=== PATIENT | female | born 1980 | race Caucasian/White ===

== ENCOUNTER 2020-04-13 09:29 | Emergency (ER) | payer SELFPAY ==
--- NOTE | ~2020-04-13 | XR_ITS ---
EXAMINATION: XR wrist LT min 3V DATE: 04/13/2020 10:42 INDICATION: Left wrist pain post fall TECHNIQUE: Posteroanterior, ulnar deviation, oblique, and lateral views of the left wrist were obtain ed. COMPARISON: none FINDINGS: Tiny minimally displaced chip/avulsion fracture at the distal aspect of the dorsal margin of the triq uetrum. No other fractures identified. Alignment is otherwise normal. Joint spaces are normal. Soft t issue swelling at the dorsum of the carpus. IMPRESSION: 1. Tiny minimally displaced dorsal triquetral chip/avulsion fracture. Reviewed, dictated and finalized at location A.
--- NOTE | ~2020-04-13 | XR_ITS ---
EXAMINATION: XR ankle LT min 3V DATE: 04/13/2020 10:42 INDICATION: Lateral left ankle pain post fall TECHNIQUE: Anteroposterior, oblique, mortise, and lateral views of the left ankle were obtained. COMPARISON: None. FINDINGS: Alignment is normal. No fracture. Joint spaces are well maintained. Large plantar calcaneal spur and small Achilles calcaneal spur. Small ankle joint effusion is present. Diffuse soft tissue swelling a bout the left ankle. IMPRESSION: 1. No acute osseous abnormality. Reviewed, dictated and finalized at location A.
[2020-04-13 09:34] VITALS: BP 145/83; PULSE 84; RESP 18; TEMP 36.3; O2SAT 97
--- NOTE | 2020-04-13 10:36 | ED.LOWEXIN ---
HPI - Extremity Injury (Lower) General Chief Complaint: Extremity Injury, Lower <Milla Monet PA-C - Last Filed: 04/13/20 12:54> Stated Complaint: ANKLE PAIN <Milla Monet PA-C - Last Filed: 04/13/20 12:54> Time Seen by Provider: 04/13/20 10:10 <Milla Monet PA-C - Last Filed: 04/13/20 12:54> Source: patient <LM Torres Last Filed: 04/13/20 12:54> Mode of arrival: ambulatory <Milla Monet PA-C - Last Filed: 04/13/20 12:54> Limitations: no limitations <Milla Monet PA-C - Last Filed: 04/13/20 12:54> History of Present Illness HPI Narrative: This is a 40 year old female that presents to the ER for left ankle injury 2 weeks ago. Reports she was mowing her lawn and twisted her left ankle and fell. Reports since she has had left lateral ankle pain and swelling. Also reports left wrist pain. She has not been seen yet for these injuries. Denies hitting her head, other injuries, decreased range of motion or numbness. <Milla Monet PA-C - Last Filed: 04/13/20 12:54> Related Data Allergies/Adverse Reactions: Allergies Allergy/AdvReac Type Severity Reaction Status Date / Time No Known Allergies Allergy Unknown Unverified 04/13/20 09:39 <Milla Monet PA-C - Last Filed: 04/13/20 12:54> Review of Systems Review of Systems: Narrative: CONSTITUTIONAL: Denies fever MUSCULOSKELETAL: Reports joint pain, and myalgia. NEUROLOGIC: Denies numbness <Milla Monet PA-C - Last Filed: 04/13/20 12:54> All systems reviewed & are unremarkable except as noted in HPI and below <Milla Monet PA-C - Last Filed: 04/13/20 12:54> [facility] Surgical History Surgical History: Surgical History (Updated 04/13/20 @ 10:39 by Milla Monet PA-C) History of tonsillectomy History of tubal ligation <Milla Monet PA-C - Last Filed: 04/13/20 12:54> Social History Social History: Social History (Updated 04/13/20 @ 10:39 by Milla Monet PA-C) Smoking status: Current every day smoker Substance use: current Substance use type: marijuana Gender identity (if verbalized by the patient): Female <Milla Monet PA-C - Last Filed: 04/13/20 12:54> Exam Narrative: Exam Narrative: GENERAL: Well-appearing, well-nourished, and in no acute distress. HEAD: Normocephalic, atraumatic. EYES: EOMI. CHEST: Clear to auscultation. No respiratory distress. No wheezes rales or rhonchi HEART: Regular rate and rhythm. No murmur heard. Normal peripheral pulses. EXTREMITIES: Normal range of motion. Moderate swelling about the left ankle, tender palpation over the lateral malleoli. Normal DP pulses. Normal sensation. Left wrist tender palpation over the distal ulna. Normal radial pulses. Normal sensation SKIN: Warm, dry, no rash. NEURO: No focal deficits. Alert and oriented x3. PSYCH: Normal mood and affect <Milla Monet PA-C - Last Filed: 04/13/20 12:54> Course Vital Signs Vital signs: Vital Signs Temperature 97.3 F L 04/13/20 09:34 Pulse Rate 84 04/13/20 09:34 Respiratory Rate 18 04/13/20 09:34 Blood Pressure 145/83 H 04/13/20 09:34 Pulse Oximetry 97 04/13/20 09:34 Temperature 97.3 F L 04/13/20 09:34 Pulse Rate 78 04/13/20 12:58 Respiratory Rate 18 04/13/20 12:58 Blood Pressure 122/78 04/13/20 12:58 Pulse Oximetry 99 04/13/20 12:58 <Milla Monet PA-C - Last Filed: 04/13/20 12:54> Vital Signs Temperature 97.3 F L 04/13/20 09:34 Pulse Rate 84 04/13/20 09:34 Respiratory Rate 18 04/13/20 09:34 Blood Pressure 145/83 H 04/13/20 09:34 Pulse Oximetry 97 06/29/20 09:34 Temperature 97.3 F L 04/13/20 09:34 Pulse Rate 78 04/13/20 12:58 Respiratory Rate 18 04/13/20 12:58 Blood Pressure 122/78 04/13/20 12:58 Pulse Oximetry 99 04/13/20 12:58 <Claudette Corea MD - Last Filed: 04/13/20 17:47> Procedures Orthopedic Splinting/Casting Injury #1: Splinting/Amilcar
[2020-04-13 11:09] VITALS: BP 128/76; PULSE 71; RESP 20; O2SAT 99
[2020-04-13 12:58] VITALS: BP 122/78; PULSE 78; RESP 18; O2SAT 99
== END 2020-04-13 13:07 | disposition home or self-care (01) ==
PROVIDERS: Emergency Provider General Practice
DX: S62.112A Displaced fracture of triquetrum [cuneiform] bone, left wrist, initial encounter for closed fracture (principal); S93.402A Sprain of unspecified ligament of left ankle, initial encounter; F17.210 Nicotine dependence, cigarettes, uncomplicated; W01.0XXA Fall on same level from slipping, tripping and stumbling without subsequent striking against object, initial encounter
CPT/HCPCS: 29125; 73110; 73610; 99284

== ENCOUNTER 2020-04-27 08:28 | Emergency (ER) | payer SELFPAY ==
--- NOTE | ~2020-04-27 | XR_ITS ---
XR lumbar spine 2-3V 04/27/2020 09:45 Indication: Low back pain Procedure: 3 views lumbar spine Comparison: No prior studies for comparison. Findings: There is disc narrowing at L5-S1. There is grade 1 spondylolisthesis at 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 Sacral foramen are symmetric. There is an IUD in the pelvis. No acute fracture or trau matic malalignment. Impression: 1: Mild lumbar spondylosis with grade 1 spondylolisthesis at 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 Reviewed, dictated and finalized at location B. Impression: 1: Mild lumbar spondylosis with grade 1 spondylolisthesis at 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
[2020-04-27 08:36] VITALS: BP 140/95; PULSE 80; RESP 18; TEMP 36.8; O2SAT 100
[2020-04-27 09:00] LABS: Add Urine Microscopic? NO; Appearance Urine Clear (Clear); Bilirubin Urine Negative (Negative); Blood Urine Negative (Negative); Color Urine Yellow (Yellow); Glucose Urine UA Negative (Negative); Ketones Urine Negative (Negative); Leukocyte Esterase Ur Negative LEU/UL (Negative); Mucus Urine Few /lpf; Nitrate Urine Negative (Negative); Protein Urine Negative (Negative); Specific Grav Ur 1.026 (1.001-1.035); Squamous Epithelial Cell Urine Rare /hpf (Few); Urobilinogen Urine Negative mg/dL (<2.0); WBC Urine 0-3 /hpf
[2020-04-27] MEDS: KETOROLAC (*BKC) 60 MG/2 ML VIAL IM (10:08)
--- NOTE | 2020-04-27 11:15 | ED.BACK ---
HPI - Back Pain/Injury General Chief Complaint: Back Pain/Injury Stated Complaint: lower back pain Time Seen by Provider: 04/27/20 08:30 History of Present Illness HPI Narrative: Patient is a 40-year-old female who presents ER with low back pain. Bilateral low back beginning when she woke up this morning. No numbness or tingling or difficulty using the restroom. No known injury. Has not tried any medications for this. Worse with bending and standing. Related Data Allergies Allergy/AdvReac Type Severity Reaction Status Date / Time No Known Allergies Allergy Unknown Verified 04/27/20 08:41 Review of Systems Review of Systems: All systems reviewed & are unremarkable except as noted in HPI and below Constitutional: Constitutional: Denies chills, Denies fever(s) and Denies weakness ENT: Denies nasal congestion and Denies sore throat Cardiovascular: Cardiovascular: Denies chest pain and Denies radiating jaw, neck or arm pain Musculoskeletal: Musculoskeletal: Reports back pain and Denies muscle cramps Neurologic: Denies focal weakness and Denies numbness [facility] Past Medical History Medical History (Updated 04/27/20 @ 11:17 by Konstantin Andre MD) Healthy female adult Surgical History Surgical History (Updated 04/13/20 @ 10:39 by Milla Monet PA-C) History of tonsillectomy History of tubal ligation Social History Social History (Updated 04/13/20 @ 10:39 by Milla Monet PA-C) Smoking status: Current every day smoker Substance use: current Substance use type: marijuana Gender identity (if verbalized by the patient): Female Exam Narrative: Exam Narrative: GENERAL: Well-appearing, well-nourished, and in no acute distress. HEAD: Normocephalic, atraumatic. ENT: Mucous membranes moist. CHEST: Clear to auscultation. No respiratory distress. HEART: Regular rate and rhythm. No murmur heard. Normal peripheral pulses. EXTREMITIES: Normal range of motion. No edema. Ambulates without difficulty. Back: No midline tenderness of thoracic or lumbar spine. Mild paraspinal muscular tenderness bilaterally in the lower lumbar region without palpable spasm or visual evidence of trauma. NEURO: Alert and oriented x3. Course Course Emergency Course: Pain improved with Toradol. Unremarkable x-rays. Discharge home. Vital Signs Vital signs: Vital Signs Temperature 98.3 F 04/27/20 08:36 Pulse Rate 80 04/27/20 08:36 Respiratory Rate 18 04/27/20 08:36 Blood Pressure 140/95 H 04/27/20 08:36 Pulse Oximetry 100 04/27/20 08:36 Temperature 98.3 F 04/27/20 08:36 Pulse Rate 80 04/27/20 08:36 Respiratory Rate 18 04/27/20 08:36 Blood Pressure 140/95 H 04/27/20 08:36 Pulse Oximetry 100 04/27/20 08:36 MDM - Back Pain/Injury Lab Data Labs: Lab Results 04/27/20 Range/Units 08:50 Urine Color Yellow (Yellow) Urine Appearance Clear (Clear) Urine pH 6.0 (5.0-9.0) Ur Specific Proctor 1.026 (1.001-1.035) Urine Protein Negative (Negative) mg/dL Urine Glucose (UA) Negative (Negative) mg/dL Urine Ketones Negative (Negative) mg/dL Ur Blood (Man) Negative (Negative) Urine Nitrate Negative (Negative) Urine Bilirubin Negative (Negative) Urine Urobilinogen Negative (<2.0) mg/dL Leukocyte Esterase Rfl Negative (Negative) HARISH/UL Urine RBC 3-5 H (0-2) /hpf Urine WBC 0-3 /hpf Ur Squamous Epith Cells Rare (Few) /hpf Urine Mucus Few H /lpf UCG Bedside Result Negative Reference Range: Negative Imaging Data Radiologist's impression: ITS Impressions Lumbar Spine X-Ray 04/27/20 09:52 Impression: 1: Mild lumbar spondylosis with grade 1 spondylolisthesis at 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 Discharge Plan Discharge Clinical Impression: Strain of lumbar region Patient Disposition: Home, Self-Care Condition: Stable Instructions: Acute Low Back Pain (ED) Additional Instruc
== END 2020-04-27 12:06 | disposition home or self-care (01) ==
PROVIDERS: Emergency Provider Emergency Medicine
DX: S39.012A Strain of muscle, fascia and tendon of lower back, initial encounter (principal); M47.816 Spondylosis without myelopathy or radiculopathy, lumbar region
CPT/HCPCS: 72100; 81003; 81025; 96372; 99283; J1885

== ENCOUNTER 2022-10-29 08:50 | Emergency (ER) | payer BC, SELFPAY ==
--- NOTE | 2022-10-29 08:52 | ED.BACK ---
HPI - Back Pain/Injury General Chief Complaint: Back Pain/Injury Stated Complaint: BACK PAIN Time Seen by Provider: 10/29/22 08:53 Source: patient and RN notes reviewed History of Present Illness HPI Narrative: Patient is a 42-year-old female who presents to urgent care with complaints of right low back pain that radiates to the right flank. Patient states it is exacerbated with twisting, lifting, pushing or pulling. States that she woke up with the pain this morning. Denies any history of kidney stones or urinary tract infections. Denies any urinary frequency, urgency, dysuria or hematuria. Denies any nausea, vomiting or abdominal pain. Patient is not taking anything [id number] for her pain. Patient denies any recent injury, fall or strenuous activity. Denies any radiation of the pain. No other acute complaints. No acute distress noted. Patient aware of the plan of care. Some parts of this dictation were generated by voice recognition software and may contain typographical and/or grammatical inaccuracies. Related Data Allergies Allergy/AdvReac Type Severity Reaction Status Date / Time No Known Allergies Allergy Unknown Verified 10/29/22 09:00 Review of Systems Review of Systems: CONSTITUTIONAL: Denies fever, chills, or sweats. EYES: Denies visual changes, redness, or discharge. ENT: Denies rhinorrhea, congestion, sore throat, or otalgia. CARDIOVASCULAR: Denies chest pain, palpitations, or edema. RESPIRATORY: Denies cough or dyspnea. GASTROINTESTINAL: Denies abdominal pain, nausea, vomiting, or diarrhea. GENITOURINARY: Denies dysuria or hematuria. SKIN: Denies rash or itching. MUSCULOSKELETAL: Reports right flank pain NEUROLOGIC: Denies headache, numbness, or weakness. All other systems reviewed are negative, except as documented in HPI. [facility] Past Medical History Medical History (Updated 10/29/22 @ 09:14 by EARL Brown) Healthy female adult Lumbar spondylosis Surgical History Surgical History History of tonsillectomy History of tubal ligation Family History Family History (Updated 04/29/20 @ 09:00 by RT Marilee(R)) Other Hypertension Social History Social History (Updated 04/29/20 @ 09:00 by Zoë D. Fuentes, RT(R)) Smoking packs per day: 0.5 Smoking cigarettes per day: 10.0 Years smoked: 20 Smoking pack-years: 10.00 Smoking status: Current every day smoker Substance use: current Substance use type: marijuana Gender identity (if verbalized by the patient): Female Comments At the time of my signature, I reviewed and agree with the nursing past medical, surgical, social, and family history. There is no relevant family history pertinent to the patient complaint. Exam Narrative: GENERAL: This is a well-nourished, well-developed patient, in no apparent distress. HEAD: normocephalic, atraumatic. EYES: PERRL. Sclera clear/white. Vision is grossly intact. EARS: External ears normal NOSE: External nose normal with no obvious nasal discharge, nares without redness, no rhinorrhea. THROAT: Mucous membranes moist NECK: Neck supple CARDIOVASCULAR: Regular rate and rhythm RESPIRATORY: Clear to auscultation. Breath sounds equal bilaterally. No wheezes, rales, or rhonchi. GASTROINTESTINAL: No abdominal tenderness, no rebound tenderness, bowel sounds active. SKIN: warm, intact with no suspicious lesions or rash, good texture and turgor. NEURO: awake, alert, and oriented to person, place and time. There were no obvious focal neurologic abnormalities. EXTREMITIES: No clubbing, cyanosis, or edema. BACK: Moderate right CVA tenderness. Mild positive left SLE Course Course Level of Care: Express Care Visit Vital Signs Vital signs: Vital Signs Temperature 97.8 F 10/29/22 09:03 Pulse Rate 79 10/29/22 09:03 Respiratory Rate 16 10/29/22 09:03 Blood Pressure 152/85 H 10/29/22 09:03 Pulse Ox
[2022-10-29 09:03] VITALS: BP 152/85; PULSE 79; RESP 16; TEMP 36.6; O2SAT 100
== END 2022-10-29 09:20 | disposition home or self-care (01) ==
PROVIDERS: Emergency Provider Nurse Practitioner Family
DX: M54.50 Low back pain, unspecified (principal); F17.210 Nicotine dependence, cigarettes, uncomplicated; M47.816 Spondylosis without myelopathy or radiculopathy, lumbar region
CPT/HCPCS: 81003; 99213; G0463

== ENCOUNTER 2022-11-20 09:51 | Emergency (ER) | payer BC, SELFPAY ==
--- NOTE | ~2022-11-20 | XR_ITS ---
EXAMINATION: XR elbow RT 2V INDICATION: Right elbow pain, initial encounter TECHNIQUE: Three views of the right elbow are obtained. COMPARISON: None available FINDINGS: Nonstandard portable images are submitted for review. There is an oblique fracture of the m edial condyle of the humerus with proximal migration of the fracture fragment and ulna. No definite a dditional fracture is identified. IMPRESSION: 1. Displaced medial condylar fracture of the right humerus. Reviewed, dictated and finalized at location A. USION PARAEDUCATOR
--- NOTE | ~2022-11-20 | XR_ITS ---
EXAMINATION: XR wrist RT 2V INDICATION: Distal radius pain, initial encounter TECHNIQUE: Two views of the right wrist are obtained. COMPARISON: None available FINDINGS: There is an oblique fracture in the lateral condyle of the distal radius which extends to t he articular surface. No additional fracture is identified. There is soft tissue swelling. IMPRESSION: 1. Oblique intra-articular fracture at the lateral condyle of the right radius. Reviewed, dictated and finalized at location A. [employer]GEN POWER PLANT ENGINEER
[2022-11-20 09:52] VITALS: BP 147/93; PULSE 91; RESP 16; TEMP 37; O2SAT 100
--- NOTE | 2022-11-20 10:26 | ED.FALL ---
HPI - Fall General Chief Complaint: Fall Stated Complaint: fall Source: patient and RN notes reviewed Mode of arrival: ambulatory Limitations: no limitations History of Present Illness HPI Narrative: patient was at home they are burning some boxes and she tripped over a log in the backyard falling onto her right arm. She has severe pain to her right elbow and moderate pain to her right wrist. Movement of any kind makes it worse nothing makes it better complaint: fall Onset (ago): minute(s) (10) Fall from: standing Fall witnessed: yes, by family Place fall occurred: home Loss of consciousness: none Symptoms prior to fall: none Context: tripped/slipped Location of injury - extremities: Right: elbow and forearm Severity: severe Severity scale (1-10): 10 Quality: sharp, stabbing and throbbing Associated symptoms (after fall): denies Related Data Allergies Allergy/AdvReac Type Severity Reaction Status Date / Time No Known Allergies Allergy Unknown Verified 11/20/22 10:13 Review of Systems Review of Systems: All systems reviewed & are unremarkable except as noted in HPI and below PMFSH Past Medical History Medical History Healthy female adult Lumbar spondylosis Surgical History Surgical History History of tonsillectomy History of tubal ligation Family History Family History (Updated 04/29/20 @ 09:00 by Zoë Fuentes, RT(R)) Other Hypertension Social History Social History Years smoked: 20 Substance use: current Substance use type: marijuana Gender identity (if verbalized by the patient): Female Exam Const: General: healthy appearing, no acute distress and alert Nutritional Appearance: well nourished and obese Orientation/consciousness: patient oriented x3 Limitations: no limitations HENMT: Head: normal to inspection Ears: external ears normal Eyes: Conjunctivae: conjunctivae normal Pupils: Equal, round and reactive pupils present EOM: EOMs intact bilaterally Neck: Neck: normal visual inspection Chest: Chest palpation & inspection: normal inspection of the chest Resp: Effort & Inspection: normal respiratory effort Auscultation: clear to auscultation bilaterally Cardio: Rate: regular rate Rhythm: regular rhythm GI: GI Palp: Yes Soft to palpation and No Tenderness to palpation present (GI) Auscultation: normal bowel sounds Back/Spine/Pelvis: Cervical Spine: cervical ROM normal Thoracic/Lumbar Spine: thoraco-lumbar ROM normal Skin: General skin exam: normal color Rashes: no rashes Neuro: General: patient oriented x3, moves all extremities, no focal motor deficits and CN's II-XI intact bilaterally Speech: normal speech Gait exam (Neuro): Normal gait present Extrem: General: normal exam except as noted and no clubbing, cyanosis or edema Right upper extremity: elbow/forearm tenderness of the distal humerus, of the olecranon, proximal forearm and of the medial epicondyle, swelling of the distal humerus, of the olecranon and of the medial epicondyle, abnormal ROM held in an abnormal fashion in flexion and in pronation, pain with active ROM during with extension, with flexion, with pronation and with supination and pain with passive ROM during with extension, with flexion, with pronation and with supination, crepitus of the distal humerus, distal pulses intact and other ( Neurovascularly intact) and wrist tenderness of the distal radius, swelling of the dorsal wrist, abnormal ROM pain with active ROM during with extension and with flexion and pain with passive ROM during with extension and with flexion and normal vascular exam Psych: Mental Status: mental status grossly normal Affect: normal affect Attitude: cooperative Course Vital Signs Vital signs: Vital Signs Temperature 37.0 C 11/20/22 09:52 Pulse Rate 91
[2022-11-20] MEDS: HYDROmorphone HCL INJ (*CRX) 2 MG/ML VIAL 1 MG IM (10:39)
[2022-11-20 11:33] VITALS: BP 142/82; PULSE 82; RESP 16; TEMP 36.7; O2SAT 98
== END 2022-11-20 11:52 | disposition home or self-care (01) ==
PROVIDERS: Emergency Provider Emergency Medicine
DX: S62.101A Fracture of unspecified carpal bone, right wrist, initial encounter for closed fracture (principal); S42.401A Unspecified fracture of lower end of right humerus, initial encounter for closed fracture; W01.0XXA Fall on same level from slipping, tripping and stumbling without subsequent striking against object, initial encounter
CPT/HCPCS: 29125; 73070; 73100; 96372; 99284; A4565; J1170

== ENCOUNTER 2022-11-30 10:38 | Outpatient (CLI) | payer BC, SELFPAY ==
--- NOTE | ~2022-11-30 | CT_ITS ---
EXAMINATION: CT elbow RT wo con DATE: 11/30/2022 11:05 INDICATION: Closed fracture of right humerus. TECHNIQUE: Computed tomography (CT) of the right elbow was performed without intravenous contrast. Au tomated exposure control and iterative reconstruction technique were employed. The dose-length produc t was 407.35 mGy-cm. COMPARISON: Right elbow radiographs 11/20/2022 FINDINGS: There is an oblique fracture of distal humerus involving the medial supracondylar region an d the trochlea. The medial fracture fragment demonstrates 14 mm proximal displacement. The medial fra cture fragment articulates with proximal ulna, and radial head is medially dislocated from the capite llum. There is a chip fracture of the radial head involving the anterior articular surface involving 10% of the articular surface. There is an elbow joint effusion with loose bodies. IMPRESSION: 1. Displaced fracture of distal humerus involving the trochlea. 2. Fracture of radial head involving the anterior articular surface. 3. Dislocation of radiocapitellar joint. 4. Elbow joint effusion with loose bodies. Reviewed, dictated and finalized at location A. STRIAL ROOFER
== END 2022-11-30 10:39 | disposition home or self-care (01) ==
PROVIDERS: Visit Provider Orthopaedic Surgery
DX: S42.461A Displaced fracture of medial condyle of right humerus, initial encounter for closed fracture (principal); S52.121A Displaced fracture of head of right radius, initial encounter for closed fracture; M25.421 Effusion, right elbow; X58.XXXA Exposure to other specified factors, initial encounter
CPT/HCPCS: 73200

== ENCOUNTER 2022-12-01 00:26 | Day surgery (SDC) | payer BC, SELFPAY ==
[2022-11-23 12:40] VITALS: BMI 37.4
--- NOTE | 2022-11-23 12:44 | PC.NURSE ---
Report to the Outpatient Waiting Room, entrance under the green pavilion located off [facility], at time 1000 on date 12/01/22. Planned Procedure Time: 1200. Time changes happen often and if your time is changed the preop area will call you the afternoon before. - You and your visitor will be asked to self-screen and do not enter if you have any COVID symptoms. - Only one visitor is requested with a max of two and NO children visitors are allowed at this time. - The patient visitor may be requested to leave or wait in car when not with patient due to distancing restrictions. - A mask is optional within the hospital at this time. Patients may have clear liquids (water, carbonated beverages, clear teas, apple juice) until 3 hours prior to surgery with a maximum of 20 ounces. - No food from midnight until time of surgery Take the following medications with a SIP of water the morning of surgery: PAIN PILL IF NEEDED DO NOT STOP ANY OF YOUR OTHER PRESCRIPTION MEDICATIONS PRIOR TO SURGERY EXCEPT THE FOLLOWING Medications to discontinue per physician: N/A Date to take last dose: N/A Please no make-up, nail cuban, hairspray, perfume, deodorant, or body powder the day of surgery. No jewelry (including any body piercings) or valuables the day of surgery, leave them at home. Please take a shower or bath the night before, or the morning of, surgery with an antibacterial soap. Wear comfortable, loose fitting clothing. - Jewelry must be removed prior to entering the operating room. Rings and piercings that are not removed may be cut off. - The hospital will not accept responsibility for valuables. - Please leave all valuables, including medications, at home the day of surgery. If you are going home after surgery, a licensed driver retraining instructor must drive you home. - NO public transportation without another adult if you receive anesthesia. - We recommend that an adult stay with you for 24 hours following discharge. - We also recommend that you do not drive, make important decision, drink alcoholic beverages, or take any drugs that were not prescribed by your health care provider for at least 24 hours after your discharge time. Follow any additional instructions given to you from your surgeon. If you or anyone in your household have experienced Covid symptoms in the past week, please notify your surgeon or the nurse liaison at the phone number below for possible testing. Telephone instructions given to PT - LAURY DE ANDA and asked if any additional questions and then verbalized understanding. Patient advised to call surgeon office or pre surgery nurse liaison [phone] if any additional questions.
--- NOTE | 2022-11-30 14:21 | P.PNAN_ITS ---
Anes - Initial Pre Proc Eval Procedure: Operation Date: 12/01/22 12:00 Proposed Procedures p Open Reduction Internal Fixation Right Humerus Fracture - Heriberto Das MD Date/Time: 11/30/22 14:21 Surgeon: Heriberto Das MD Pre Op Diagnosis: right humerus fx Patient Data Age: 42 Gender: F Height: 1.74 m Weight: 113.4 kg Allergies Allergy/AdvReac Type Severity Reaction Status Date / Time No Known Allergies Allergy Unknown Verified 12/01/22 10:20 Home Medications Medication Instructions Recorded Confirmed Type hydrocodone 5 mg-acetaminophen 325 1 tablet PO Q6H PRN pain #30 tabs 11/24/22 12/01/22 Rx mg tablet Patient hx anesthesia problems: none Family hx anesthesia problems: none Results Review: All pre-operative results and documents have been reviewed as part of the pre- operative evaluation. [facility] Past Medical History Medical History (Updated 11/30/22 @ 14:21 by Hussein Quintana MD) Lumbar spondylosis Obesity Surgical History Surgical History History of tonsillectomy History of tubal ligation Family History Family History (Updated 11/24/22 @ 14:26 by Priscilla Avila MA) Other Cerebrovascular accident Depression Diabetes mellitus H/O: stroke High cholesterol Hypertension Social History Social History Smoking packs per day: 1 Smoking cigarettes per day: 20.0 Years smoked: 18 Smoking pack-years: 18.00 Smoking status: Former smoker Tobacco type: cigarettes Smoking end date: 05/16/22 Alcohol intake: never Substance use: current Substance use type: marijuana Living arrangements: with family Gender identity (if verbalized by the patient): Female Spiritual care concerns: No Anes - Eval Final PreProcedure Day of Procedure 11/30/22 14:21 Patient weight: obese Heart: regular rate and rhythm Lungs: clear to auscultation and normal air movement Airway: Mallampati scale class II Neurological: alert and oriented Last oral intake: >/= 8 hours ASA classification: II Emergent: no Anesthetic plan: proceed Anesthesia type and monitoring: general ETT Results Review: All pre-operative results and documents have been reviewed as part of the pre- operative evaluation. Informed Consent: The patient's anesthetic plan and its attendant risks and benefits were discussed with the patient/family/POA. Questions were solicited and answers provided to the satisfaction of the patient/family/POA.
[2022-12-01] VITALS (9 sets, daily range): BP systolic 126–159; BP diastolic 73–95; PULSE 69–100; RESP 15–26; TEMP 36.4–36.8; O2SAT 94–98
--- NOTE | ~2022-12-01 | XR_ITS ---
EXAMINATION: XR surgery orthopedic DATE: 12/01/2022 14:59 INDICATION: ORIF right humerus TECHNIQUE: 4 fluoroscopic images of the right upper were obtained during procedure performed by Dr. Syed amaral. Radiologist was not present for the imaging or procedure. The amount of fluoroscopy time used during this procedure was 1.0 minutes. COMPARISON: None. FINDINGS: Reduction and internal fixation of the medial condylar/supracondylar fracture of the distal right hum erus with a medial plate and screw fixation. Small impaction fracture defect along the rim of the art icular surface of the radial head. Dorsal plate and screw fixation spanning a linear lucent defect ac ross the olecranon which is without correlate on the CT from one day prior which suggests this repres ents an osteotomy rather than fracture. Alignment of the fixations appears near-anatomic. There is a small linear displaced fracture fragment in the soft tissues anterior to the joint space. Expected an d small amount of postoperative intra-articular gas. IMPRESSION: 1. Fluoroscopy utilized during orthopedic procedure at the right elbow as detailed above. See procedu re note for further detail. Reviewed, dictated and finalized at location A. TRONIC WARFARE TECHNICAL IMPRESSION: 1. Fluoroscopy utilized during orthopedic procedure at the right elbow as detnegrita led above. See procedure note for further detail.
[2022-12-01] MEDS: ACETAMINOPHEN 500 MG TABLET 1000 MG PO (10:42)
[2022-12-01] MEDS: LACTATED RINGERS 1,000 ML 30 ML IV CONT ×2 (10:50→15:17)
--- NOTE | 2022-12-01 10:51 | WPDHPUPDATE1 ---
History and Physical Update Update Date/Time: 12/01/22 10:51 History and Physical has been reviewed, including an updated exam of the patient. There are NO changes in the patient's condition. CT scan reviewed with patient. Comminuted fracture of the distal medial humerus with displacement of the elbow joint. Indicated for open reduction internal fixation as planned. Risks, benefits, and alternatives have been discussed and questions answered. Patient agrees to proceed with procedure.
--- NOTE | 2022-12-01 11:13 | WPDANESPNB ---
Anes - Peripheral Nerve Block Date/Time: 12/01/22 11:13 I have discussed with the patient/family/POA the placement of a peripheral nerve block for post-operative pain management, including associated risks, benefits, complications, and side effects. Alternative methods of post-operative analgesia were detailed. Questions were solicited and answers provided to the satisfaction of the patient/family/POA. Time-Out: A pre-procedural Time-Out was completed immediately before starting the procedure and confirmed: Patient Identification, Site, Procedure, Patient Position and the Availability of Requisite Equipment. Clinical Indications: Acute post-operative pain management requested by the operative surgeon. Nerve Block Insertion Note Anes-nerve block: supraclavicular Patient position: supine Skin prep: chlorhexidine Needle: 22 gauge, stimulating, insulated echogenic needle. Needle length: 80 mm Technique: ultrasound (in plane) Injectate: bupivacaine 0.25% with epi 5 mcg/ml (20cc) Observations: tolerated well Complications: none Procedure start time:: 1150 Procedure end time:: 1155
[2022-12-01] MEDS: KETOROLAC 15 MG/ML VIAL (*BKC) IV PUSH (11:19)
[2022-12-01] MEDS: ceFAZolin 2 GM/D5W 50 ML 2 GM/50 ML BAG IVPB (12:05)
--- NOTE | 2022-12-01 15:45 | W.PM.PROC2 ---
Procedure Note - Detailed Date of Procedure 12/01/22 Pre-op Diagnosis right humerus fx Post-op Diagnosis Same Procedure Performed Open reduction internal fixation right distal humerus fracture, subcutaneous transposition Right ulnar nerve. Surgeon Heriberto Das MD [employer] administrative assistant Anesthesia General Indications 42-year-old woman with right distal humerus fracture as well as ulnar neuritis with numbness and tingling of the small finger and partial ring finger. Presents for operative treatment. Findings Medial distal humeral fracture, intra-articular. Radial head fracture. Description of Procedure Patient identified in the preoperative holding. Informed consent given. Operative extremity marked. Patient received intravenous antibiotics. Patient brought to the operating room where underwent general anesthetic by anesthesia team. Positioned semi-lateral on operating room table. Time-out performed confirming the patient, site of the surgery and the plan. Right arm prepped draped usual sterile surgical fashion using a ChloraPrep skin solution. Hand and arm were exsanguinated and a proximal arm tourniquet inflated to 250 mmHg. with the patient semi lateral the right arm was brought across the body of the patient. A standard posterior approach to the olecranon would see utilized. This was mapped out on the skin and incision made with a 15 blade knife. Hemostasis controlled electrocautery. Dissection was carried down to the triceps fascia. Metzenbaum scissors were then used to dissect over to the ulnar nerve. Careful dissection revealed scar tissue and trauma to the surrounding tissue of the ulnar nerve. Transposition was indicated. The ulnar nerve was found and freed up more proximally. This was then carried down distally under careful visualization to the motor branch points. Pocket was developed sub cutaneously to the medial side. The ulnar nerve was then transposed around the medial epicondyle into the subcutaneous pocket. We then addressed the fracture. An olecranon osteotomy was indicated as the fracture was intra-articular. This was confirmed with image intensification and then a chevron shaped osteotomy performed with sagittal saw and completed with osteotome. Pre-drilling was done for the later repair of the olecranon. The triceps attachment olecranon was then reflected proximally. This allowed visualization of the joint surface. There was bone and cartilage debris in the joint itself. This was suctioned out and thoroughly irrigated. Hematoma and scar tissue which had formed was removed with a rongeur. The medial aspect of the trochlea including the medial epicondyle was in 1 separate fragment which had fractured off and displaced proximally. The articular surface was freed up and then reduced anatomically and provisionally pinned. Fixation was then achieved with a medial plate which was contoured to the medial side of the distal humerus. Fixation was achieved with 3.5 mm cortical screws. Image intensification confirmed placement of the hardware. Reduction was confirmed visually at the articular surface. Wound was thoroughly irrigated and suctioned. Alignment of the radial head was confirmed with image intensification. Fixation of the radial head was not felt to be indicated. The olecranon was then fixed with a contoured plate and 3.5 mm cortical screws. Image intensification confirmed final alignment of the bone and placement of all hardware. Elbow was taken through range of motion. There was a lack of approximately 5? of extension. Flexion was 130?. Pronation and supination of the forearm was 80? each. Wound then closed after thorough irrigation with 0 Vicryl interrupted suture for the fascia, 2-0 Vicryl 3-0 Monocryl interrupted suture for the subcutaneous tissue and julio for the skin. Sterile dressing applied. The patient was then woken from anesthesia, extubated and taken to the recovery room in stable condi
[2022-12-01] MEDS: fentaNYL CITRATE INJ (*CRX) 100 MCG/2 ML VIAL 25 MCG IV PUSH ×4 (16:09→16:19)
[2022-12-01] MEDS: oxyCODONE HCL (*CRX) 5 MG TAB IR PO (16:38)
== END 2022-12-01 16:27 | disposition home or self-care (01) ==
PROVIDERS: Visit Provider Orthopaedic Surgery
PROC: (CPT 24586; principal; 2022-12-01 12:00)
DX: S42.401A Unspecified fracture of lower end of right humerus, initial encounter for closed fracture (principal); G89.18 Other acute postprocedural pain; W01.0XXA Fall on same level from slipping, tripping and stumbling without subsequent striking against object, initial encounter; E66.9 Obesity, unspecified; Z68.38 Body mass index [BMI] 38.0-38.9, adult; Z87.891 Personal history of nicotine dependence; F12.90 Cannabis use, unspecified, uncomplicated
CPT/HCPCS: 24586; 64415; 99199; A9270; C1713; J0330; J0690; J1100; J1170; J1885; J2250; J2405; J2704; J2710; J3010; J7120